=== PATIENT | female | born 1970 | race Caucasian/White ===

== ENCOUNTER 2017-10-22 00:15 | Emergency (ER) | payer MEDICARE, OTHER, MEDICAID | END 2017-10-22 04:25 | disposition left against medical advice (07) | LOC: FTE 00:15 → E/R 04:25 | DX: Z53.21 Procedure and treatment not carried out due to patient leaving prior to being seen by health care provider (principal) ==

== ENCOUNTER 2018-03-12 22:45 | Emergency (ER) | payer OTHER, MEDICARE ==
[2018-03-12] MEDS: LORAZEPAM 2 MG INJ IM (22:56)
== END 2018-03-12 23:18 | disposition home or self-care (01) ==
LOC: E/R 22:45
DX: Z02.89 Encounter for other administrative examinations (principal); R40.2142 Coma scale, eyes open, spontaneous, at arrival to emergency department; R40.2362 Coma scale, best motor response, obeys commands, at arrival to emergency department
CPT/HCPCS: 96372; 99284-25

== ENCOUNTER 2018-12-27 01:14 | Emergency (ER) | payer MEDICARE, MEDICAID, OTHER | END 2018-12-27 03:56 | disposition home or self-care (01) | LOC: E/R 01:14 | DX: M79.604 Pain in right leg (principal); M79.605 Pain in left leg | CPT/HCPCS: 99282 ==